=== PATIENT | male | born 1980 | race African-American/Black ===

== ENCOUNTER 2017-09-27 07:18 | Emergency (ER) | payer OTHER ==
[2017-09-27 07:23] VITALS: BP 126/82; PULSE 98; RESP 18; TEMP 97
[2017-09-27] MEDS ORDERED: AZITHROMYCIN 500 MG TAB PO STA (07:34)
[2017-09-27] MEDS ORDERED: cefTRIAXone 250 MG VIAL IM STA (07:34)
[2017-09-27] MEDS ORDERED: metroNIDAZOLE 500 MG TAB PO STA (07:34)
[2017-09-27 08:05] LABS: Appearance,Urine Clear (Clear); Bilirubin,Urine Negative (Negative); Blood,Urine Trace (Negative); Color,Urine Yellow; Glucose,Urine (UA) Negative (Negative); Hyaline Casts,Urine 3 /lpf (0-2); Ketones,Urine Trace (Negative); Leukocyte Esterase,Urine Moderate (Negative); Mucus,Urine Moderate /hpf; Nitrite,Urine Negative (Negative); PH, Urine 5.5 (5.0-8.0); Protein,Urine 1+ (Negative); RBC,Urine 4 /hpf (0-5); Specific Gravity,Urine 1.026 (1.001-1.035); Sperm,Urine Rare /hpf; WBC,Urine 41 /hpf (0-5)
--- NOTE | 2017-09-27 08:11 | ED ---
Male Urogenital HPI - General Chief complaint: Urogenital Stated complaint: Male gu Time Seen by Provider: 09/27/17 07:27 Source: patient Mode of arrival: ambulatory Limitations: no limitations - History of Present Illness Initial comments: This is a 37-year-old male who presents emergency department for an STD exposure. He states he has been having some burning with urination a milky discharge. States that he's been 6 active with his girlfriend and also another female. States that he was told from the other female that she may have contracted a sexually transmitted disease. He denies any abdominal pain. No joint pain. No fevers or chills. No other complaints. - Related Data Previous Rx's Medication Instructions Recorded Sulfamethox-Tmp 800-160Mg [Bactrim 1 tab PO Q12HR #14 tab 09/27/17 DS 800-160 mg] Allergies Allergy/AdvReac Type Severity Reaction Status Date / Time No Known Allergies Allergy Verified 09/27/17 08:22 Review of Systems ROS Statement: Those systems with pertinent positive or pertinent negative responses have been documented in the HPI. ROS Other: All systems not noted in ROS Statement are negative. Past Medical History Past Medical History: No Reported History Additional Past Medical History / Comment(s): chronic back pain History of Any Multi-Drug Resistant Organisms: MRSA Date of last positivie culture/infection: 03/28/15 MDRO Source:: Face Past Surgical History: No Surgical Hx Reported Past Psychological History: No Psychological Hx Reported Smoking Status: Current every day smoker Past Alcohol Use History: None Reported Past Drug Use History: None Reported General Exam - General Exam Comments Initial Comments: Constitutional: Awake alert Appears comfortable Head: Normocephalic atraumatic Eyes: no conjunctival injection No scleral icterus EOMI Neck: No JVD Supple Heart: Regular rate rhythm normal S1-S2 no murmurs Lungs: Clear to auscultation bilaterally No wheezing No rales Abdomen: Soft nondistended nontender, patient deferred genital exam Extremities: Non edematous DP pulses intact Radial pulses intact Neuro: A&Ox3 No focal neurologic deficits Psych: Appropriate mood and affect Limitations: no limitations Course Vital Signs 09/27/17 07:20 Temperature 97.0 F L Pulse Rate 98 Respiratory 18 Rate Blood Pressure 126/82 O2 Sat by Pulse 100 Oximetry Medical Decision Making - Medical Decision Making This is a 37-year-old male who presented for STD exposure. He was treated with Rocephin, azithromycin, and metronidazole. Urine was sent for chlamydia and gonorrhea. He was told that someone to call with positive results or he could call to the emergency department to get his results. Instructed to return if he had worsening symptoms or any other concerns. All questions were answered. No sex for 3 weeks. - Lab Data Lab Results 09/27/17 Range/Units 07:21 Urine Color Yellow Urine Appearance Clear (Clear) Urine pH 5.5 (5.0-8.0) Ur Specific [place] 1.026 (1.001-1.035) Urine Protein 1+ H (Negative) Urine Glucose (UA) Negative (Negative) Urine Ketones Trace H (Negative) Urine Blood Trace H (Negative) Urine Nitrite Negative (Negative) Urine Bilirubin Negative (Negative) Urine Urobilinogen 2.0 (<2.0) mg/dL Ur Leukocyte Esterase Moderate H (Negative) Urine RBC 4 (0-5) /hpf Urine WBC 41 H (0-5) /hpf Hyaline Casts 3 H (0-2) /lpf Urine Mucus Moderate H (None) /hpf Urine Sperm Rare (None) /hpf Disposition Clinical Impression: Urethritis Disposition: HOME SELF-CARE Condition: Stable Instructions: Sexually Transmitted Diseases (ED), Urinary Tract Infection in Men (ED) Prescriptions: Sulfamethox-Tmp 800-160Mg [Bactrim DS 800-160 mg] 1 tab PO Q12HR #14 tab Referrals: Adrian Schrader MD [Primary Care Provider] - 1-2 days
[2017-09-28 15:53] LABS: Chlamydia trachomatis rRNA DETECTED (Not detected); Neisseria gonorrhoeae rRNA Not detected (Not detected)
== END 2017-09-27 08:26 | disposition home or self-care (01) ==
LOC: EC 07:18
DX: N34.2 Other urethritis (principal); F17.200 Nicotine dependence, unspecified, uncomplicated; Z86.14 Personal history of Methicillin resistant Staphylococcus aureus infection
CPT/HCPCS: 87591; 87491; 81001; 99283; 96372; J0696

== ENCOUNTER 2018-01-06 12:01 | Emergency (ER) | payer OTHER ==
[2018-01-06] MEDS ORDERED: DIAZEPAM 5 MG TAB PO STA (13:21)
[2018-01-06 13:49] VITALS: RESP 16
--- NOTE | 2018-01-06 13:55 | XR ---
Right shoulder HISTORY: Right shoulder pain 3 views of the right shoulder There is superior displacement of the distal clavicle in relation to the acromion. Right lung apex as visualized is normal. No evident fracture or dislocation of the glenohumeral joint. IMPRESSION: Findings suggest acromioclavicular separation.
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
[2018-01-06 14:56] VITALS: BP 124/80; PULSE 86; TEMP 98.5
== END 2018-01-06 15:01 | disposition home or self-care (01) ==
LOC: EC 12:01
DX: S49.91XA Unspecified injury of right shoulder and upper arm, initial encounter (principal); S43.101A Unspecified dislocation of right acromioclavicular joint, initial encounter; F17.200 Nicotine dependence, unspecified, uncomplicated; Z86.14 Personal history of Methicillin resistant Staphylococcus aureus infection; V47.6XXA Car passenger injured in collision with fixed or stationary object in traffic accident, initial encounter; Y93.89 Activity, other specified; Y92.410 Unspecified street and highway as the place of occurrence of the external cause
CPT/HCPCS: 99283